=== PATIENT | male | born 1995 | race Two or more races ===

== ENCOUNTER 2019-01-26 11:30 | Emergency (ER) | payer OTHER ==
[2019-01-26] MEDS ORDERED: fentaNYL 100 MCG/2 ML INJ IVP ONE (12:05)
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
[2019-01-26 14:29] VITALS: BP 121/70
== END 2019-01-26 14:29 | disposition home or self-care (01) ==
PROC: 2W39X1Z Immobilization of Left Upper Extremity using Splint (ICD-10-PCS; principal; 2019-01-26)
DX: S42.332A Displaced oblique fracture of shaft of humerus, left arm, initial encounter for closed fracture (principal); V23.4XXA Motorcycle driver injured in collision with car, pick-up truck or van in traffic accident, initial encounter; Y92.410 Unspecified street and highway as the place of occurrence of the external cause
CPT/HCPCS: 96374; A4565; J3010

== ENCOUNTER 2019-01-31 11:30 | Day surgery (SDC) | payer OTHER ==
[2019-01-31] MEDS ORDERED: LR 1,000 ML IV ONE (11:59)
[2019-01-31] MEDS ORDERED: LIDOCAINE 1% 2 ML INJ ID PRN (11:59)
[2019-01-31] MEDS ORDERED: MIDAZOLAM 2 MG/2 ML VIAL IVP ONE (12:08)
[2019-01-31] MEDS ORDERED: POLYMYXIN B SULFATE 500,000 UNIT/10 ML SYR IRR ONE (12:15)
[2019-01-31] MEDS ORDERED: BUPIVACAINE 0.5% 30 ML SDV ONE (12:15)
[2019-01-31] MEDS ORDERED: BACITRACIN 50,000 UNITS/10 ML SYR IRR ONE (12:16)
[2019-01-31] MEDS ORDERED: NALOXONE HCL 0.4 MG/ML INJ IVP PRN ×2 (12:38→15:15)
[2019-01-31] MEDS ORDERED: ceFAZolin 2 GM/DEXTROSE 100 ML IV ONE (12:38)
[2019-01-31] MEDS ORDERED: fentaNYL 100 MCG/2 ML INJ ONE ×3 (12:51→15:26)
[2019-01-31] MEDS ORDERED: LIDOCAINE 2% 100 MG/5 ML SYR ONE (12:52)
[2019-01-31] MEDS ORDERED: PROPOFOL 200 MG/20 ML VIAL ONE ×2 (12:52→15:02)
[2019-01-31] MEDS ORDERED: ONDANSETRON 4 MG/2 ML VIAL ONE (13:16)
[2019-01-31] MEDS ORDERED: DEXAMETHASONE 4 MG/ML VIAL ONE (13:16)
[2019-01-31] MEDS ORDERED: BUPIVACAINE/EPI 0.5% 30 ML SDV ONE (13:18)
[2019-01-31] MEDS ORDERED: ACETAMINOPHEN 500 MG TAB PO PRN (15:15)
[2019-01-31] MEDS ORDERED: ONDANSETRON 4 MG/2 ML VIAL IVP PRN (15:15)
[2019-01-31] MEDS ORDERED: DIAZEPAM 10 MG/2 ML SYR IVP PRN (15:15)
[2019-01-31] MEDS ORDERED: HYDROmorphONE/DILAUDID 1 MG/ML INJ IVP PRN (15:15)
[2019-01-31] MEDS ORDERED: oxyCODONE IR 5 MG TAB PO PRN (15:15)
[2019-01-31] MEDS ORDERED: PROMETHAZINE HCL 25 MG/ML INJ IVP PRN (15:15)
[2019-01-31] MEDS ORDERED: HYDROCODONE/APAP 5/325 TAB PO PRN (15:15)
[2019-01-31] MEDS: fentaNYL 100 MCG/2 ML INJ IVP PRN ×2 (15:27→15:48)
[2019-01-31] MEDS ORDERED: oxyCODONE IR 5 MG TAB ONE (16:24)
== END 2019-01-31 17:17 | disposition home or self-care (01) ==
DX: S42.352A Displaced comminuted fracture of shaft of humerus, left arm, initial encounter for closed fracture (principal); V23.4XXA Motorcycle driver injured in collision with car, pick-up truck or van in traffic accident, initial encounter; Y92.410 Unspecified street and highway as the place of occurrence of the external cause